=== PATIENT | male | born 1960 | race Caucasian/White ===

== ENCOUNTER 2017-05-31 19:08 | Emergency (ER) | payer OTHER ==
[~2017-05-31] VITALS: Ht 177.8 cm; Wt 85.2 kg
[2017-05-31 19:21] VITALS: BP 136/85
[2017-05-31] MEDS ORDERED: LISI-170 PO (20:21)
[2017-05-31] MEDS ORDERED: SIMV40TA3 PO (20:21)
== END 2017-05-31 21:07 | disposition home or self-care (01) ==
LOC: ED 21:01
DX: T24.511A Corrosion of first degree of right thigh, initial encounter (principal); T32.0 Corrosions involving less than 10% of body surface; Y93.89 Activity, other specified; Y99.0 Civilian activity done for income or pay; Y92.69 Other specified industrial and construction area as the place of occurrence of the external cause
CPT/HCPCS: 99283

== ENCOUNTER 2019-03-08 14:08 | Emergency (ER) | payer OTHER ==
[~2019-03-08] VITALS: Ht 177.8 cm; Wt 89.0 kg
[~2019-03-08 14:08] MED LIST: LISI-170 PO; SIMV40TA3 PO
--- NOTE | 2019-03-08 14:23 | NUR ---
swelling in neck and tounge after taking lisinopril. vomit x1 this morning.
--- NOTE | 2019-03-08 14:26 | NUR ---
pt to xray
[2019-03-08] MEDS ORDERED: PLEASE ENTER ALLERGIES MC SCH (14:30)
[2019-03-08] MEDS ORDERED: FAMOTIDINE 20 MG/2 ML IVPush ONE (14:30)
[2019-03-08] MEDS ORDERED: DIPHENHYDRAMINE 50 MG/ML, 1ML IVPush ONE (14:30)
[2019-03-08] MEDS ORDERED: EPINEPHRINE 1 MG/ML, 1ML IM ONE (14:30)
[2019-03-08 14:35] LABS: BASOPHILS # (AUTO) 0.02 x10^3/uL (0-0.1); BASOPHILS % (AUTO) 0 % (0-1); EOSINOPHILS # (AUTO) 0.02 x10^3/uL (0-0.4); EOSINOPHILS % (AUTO) 0 % (1-7); LYMPHOCYTES # (AUTO) 0.63 x10^3/uL (1-3.4); LYMPHOCYTES % (AUTO) 10 % (22-44); MD NO; MEAN CORPUSCULAR HEMOGLOBIN 33.1 pg (27.5-34.5); MEAN CORPUSCULAR VOLUME 94.6 fL (81-97); MEAN PLATELET VOLUME 7.5 fL (7.4-10.4); MONOCYTES # (AUTO) 0.37 x10^3/uL (0.2-0.8); MONOCYTES % (AUTO) 6 % (2-9); NEUTROPHILS # (AUTO) 5.48 x10^3/uL (1.8-6.8); NEUTROPHILS % (AUTO) 84 % (42-75); PLATELET COUNT 189 x10^3/uL (130-400); RED BLOOD COUNT 4.97 x10^6/uL (4.38-5.82); RED CELL DISTRIBUTION WIDTH 14.2 % (9.4-14.8)
--- NOTE | 2019-03-08 14:39 | NUR ---
pt ambulated to bathroom
[2019-03-08] MEDS ORDERED: FAMOTIDINE 20 MG/2 ML ONE (14:42)
[2019-03-08] MEDS ORDERED: EPINEPHRINE 1 MG/ML, 1ML ONE (14:42)
[2019-03-08] MEDS ORDERED: DIPHENHYDRAMINE 50 MG/ML, 1ML ONE (14:42)
[2019-03-08 14:45] LABS: ALANINE AMINOTRANSFERASE 33 U/L (12-78); ALBUMIN 3.8 g/dL (3.4-5.0); ANION GAP 7 mmol/L (5-15); CALCIUM 8.6 mg/dL (8.5-10.1); CHLORIDE 111 mmol/L (98-107); CREATININE 1.33 mg/dL (0.7-1.3)
[2019-03-08 14:47] LABS: ALKALINE PHOSPHATASE 61 U/L (45-117); BILIRUBIN,TOTAL 0.7 mg/dL (0.2-1.0); TOTAL PROTEIN 7.1 g/dL (6.4-8.2)
--- NOTE | 2019-03-08 15:04 | NUR ---
pt resting on gurney. pain 0/10. perscribed medications provided. see emar. will continue to monitor swelling of tounge and throat. pt states he "feels a little be better"
--- NOTE | 2019-03-08 15:10 | NUR ---
DR STUBBS AT BEDSIDE TO RE-EVAL PT. PT WITH IMPROVING SWELLING NOTED
--- NOTE | 2019-03-08 15:57 | NUR ---
PT WITH CONT IMPROVEMENT OF TONGUE AND THROAT SWELLING. BP DECREASED. CONT TO MONITOR
[2019-03-08] MEDS ORDERED: SODIUM CHLORIDE FLUSH 10ML SYR IVF ONE (16:00)
--- NOTE | 2019-03-08 16:50 | NUR ---
PT DOZING INTERMITTENTLY, AROUSES EASILY. CONT IMPROVEMENT IN AIRWAY SWELLING. IV DC'D, REVIEWED DC INSTRUCTIONS WITH PT, UNDERSTANDING VERBALIZED. PT TO LEAVE AMB.
[2019-03-08 16:51] VITALS: BP 155/91
== END 2019-03-08 16:55 | disposition home or self-care (01) ==
LOC: ED 15:10
DX: T78.3XXA Angioneurotic edema, initial encounter (principal); I10 Essential (primary) hypertension; F17.200 Nicotine dependence, unspecified, uncomplicated
CPT/HCPCS: 36415; 70360; 80053; 85025; 93005; 96372; 96374; 96375; 99284; J0171; J1200; J3490

== ENCOUNTER → 2021-01-04 | Outpatient (CLI) | payer OTHER ==
[~2021-01-04] MED LIST changes: +SIMV40TA20 PO; -SIMV40TA3 PO
== END | disposition home or self-care (01) ==
LOC: RAD 14:20
PROVIDERS: ATTEND Internal Medicine Nephrology
DX: N28.1 Cyst of kidney, acquired (principal); N18.2 Chronic kidney disease, stage 2 (mild); N28.89 Other specified disorders of kidney and ureter
CPT/HCPCS: 76770

== ENCOUNTER → 2021-01-14 | Outpatient (CLI) | payer OTHER | END | disposition home or self-care (01) | LOC: RAD 13:19 | PROVIDERS: ATTEND Physician Assistant Medical | DX: M79.631 Pain in right forearm (principal); M79.89 Other specified soft tissue disorders ==